=== PATIENT | female | born 1985 | race Caucasian/White ===

== ENCOUNTER 2023-08-16 03:30 | Emergency (ER) | payer OTHER ==
[~2023-08-16] VITALS: Ht 152.4 cm; Wt 109.9 kg
[2023-08-16 04:24] LABS: BASOPHILS # (AUTO) 0.1 X10'3 (0-0.2); BASOPHILS % (AUTO) 0.7 % (0-1); EOSINOPHILS # (AUTO) 0.1 X10'3 (0-0.9); EOSINOPHILS % (AUTO) 0.9 % (0-6); HEMATOCRIT 45.5 % (35.0-45.0); HEMOGLOBIN 15.8 g/dl (12.0-16.0); LYMPHOCYTES # (AUTO) 4.5 X10'3 (1.1-4.8); LYMPHOCYTES % (AUTO) 30.3 % (21-51); MEAN CORPUSCULAR HGB CONC 34.8 g/dL (33.0-36.5); MEAN CORPUSCULAR VOLUME 86.4 FL (78-98); MEAN PLATELET VOLUME 9.4 FL (7.4-10.4); MONOCYTES # (AUTO) 0.9 X10'3 (0-0.9); NEUTROPHILS # (AUTO) 9.1 X10'3 (1.8-7.7); NEUTROPHILS % (AUTO) 62.1 % (42-75); PLATELET COUNT 381 X10'3 (140-440); RED BLOOD COUNT 5.26 X10'6 (4.20-5.60); WHITE BLOOD COUNT 14.7 X10'3 (4.5-11.0)
--- NOTE | 2023-08-16 04:29 | NUR ---
Patient in BR. Hat placed in toilet for urine collection. Patient with flat affect. Continue to monitor.
[2023-08-16 04:33] LABS: ALANINE AMINOTRANSFERASE 21 U/L (12-78); ALBUMIN 4.1 G/DL (3.4-5.0); ALKALINE PHOSPHATASE 91 IU/L (46-116); ANION GAP 11 (8-16); ASPARTATE AMINO TRANSFERASE 15 U/L (10-37); BILIRUBIN,TOTAL 0.4 MG/DL (0.1-1.0); BLOOD UREA NITROGEN 7 MG/DL (7-18); BUN/CREATININE RATIO 6.2 (10.0-20.0); CHLORIDE 102 MMOL/L (99-107); CREATININE 1.13 MG/DL (0.40-0.90); GLUCOSE 147 MG/DL (70-104); POTASSIUM 3.5 MMOL/L (3.5-5.1); SODIUM 137 MMOL/L (135-145); TOTAL CARBON DIOXIDE 23.6 MMOL/L (24-32); TOTAL PROTEIN 8.4 G/DL (6.4-8.2); eCRCL 49 ML/MIN; eGFR 54 ML/MIN
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
[2023-08-16 04:43] LABS: ETHANOL < 10 MG/DL (<10); THYROID STIMULATING HORMONE 3.22 ulU/ml (0.34-4.50)
[2023-08-16 04:44] LABS: URINE HCG NEGATIVE (NEG)
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
[2023-08-16 04:57] LABS: URINE AMPHETAMINE SCREEN NEGATIVE (Neg); URINE BARBITUATE SCREEN NEGATIVE (Neg); URINE BENZODIAZEPINES SCREEN NEGATIVE (Neg); URINE CANNABINOID SCREEN NEGATIVE (Neg); URINE COCAINE SCREEN NEGATIVE (Neg); URINE METHADONE SCREEN NEGATIVE (Neg); URINE OPIATE SCREEN NEGATIVE (Neg); URINE PHENCYCLIDINE SCREEN NEGATIVE (Neg)
[2023-08-16 05:16] LABS: BILIRUBIN,URINE NEGATIVE (Neg); CLARITY,URINE SLIGHTLY CLOUDY (Clear); COLOR,URINE YELLOW (Yellow); GLUCOSE, URINE NEGATIVE (Neg); KETONES,URINE NEGATIVE (Neg); LEUKOCYTE ESTERASE ,URINE NEGATIVE (Neg); NITRITES, URINE NEGATIVE (Neg); OCCULT BLOOD,URINE NEGATIVE (Neg); PROTEIN,URINE 100 mg/dl (Neg); UROBILINOGEN,URINE 0.2 E.U/dL (0.2-1.0)
[2023-08-16 05:18] LABS: UA COLLECTION TYPE CLN CATCH MIDSTREAM
[2023-08-16 05:34] LABS: BACTERIA,URINE 3+ /HPF (Neg); MUCUS STRANDS MODERATE /LPF (Neg); RBC,URINE NONE SEEN /HPF (0-2); SQUAMOUS EPITHELIAL CELL,UR MANY /LPF (FEW); WBC,URINE 0-4 /HPF (0-4)
--- NOTE | 2023-08-16 05:53 | NUR ---
Patient sleeping supine. No distress observed. Continue to monitor.
[2023-08-16] MEDS ORDERED: NO HOME MEDS (06:07)
--- NOTE | 2023-08-16 06:51 | NUR ---
Patient appears to be asleep on her left side. A blanket is covering her head. No s/sx of distress.
--- NOTE | 2023-08-16 08:59 | NUR ---
Relieved primary nurse for a break. Pt sitting on the side of her bed eating breakfast.
--- NOTE | 2023-08-16 11:00 | NUR ---
Patient sleeping supine. No distress observed. Continue to monitor.
--- NOTE | 2023-08-16 13:45 | NUR ---
Patient sleeping on her left side. Resp even and unlabored. No s/sx of distress.
--- NOTE | 2023-08-16 14:15 | NUR ---
PT SLEEPING IN BETWEEN BRP AND TALKING TO MH EVALUATORS. CALM AND COOPERATIVE, SHORT SENTENCES. WAS TEARFUL AFTER DISCUSSION WITH MH, STATED SHE WAS OK, NO DISTRESS, APPEARED RELIEVED.
--- NOTE | 2023-08-16 15:08 | NUR ---
Patient sleeping on her right side. Resp. even and unlabored. No s/sx of distress. Talked to patient when awake and she can not give me any information how to locate her car.
--- NOTE | 2023-08-16 17:38 | NUR ---
Patient sitting on the side of her bed eat her dinner.
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
--- NOTE | 2023-08-17 07:22 | NUR ---
Patient moved back to overflow bed 20 from main ER. She ambulated without assistance, and went right back to sleep.
--- NOTE | 2023-08-17 08:33 | NUR ---
Patient sitting on her bed eating breakfast. No s/sx of distress.
--- NOTE | 2023-08-17 10:02 | NUR ---
Patient sleeping supine. No distress observed. Continue to monitor.
--- NOTE | 2023-08-17 12:28 | NUR ---
Patient has eaten her lunch tray, used the restroom and gone back to bed. No s/sx of distress.
--- NOTE | 2023-08-17 13:15 | NUR ---
Recieved report. Pt is currently in the BR.
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
--- NOTE | 2023-08-17 15:22 | NUR ---
Pt appears to be sleeping. RR even and unlabored.
--- NOTE | 2023-08-17 16:54 | NUR ---
Pt up to the BR then back to her bed. She states, "the bed is helping my back unlike when I sleep in my car." She appears calm.
--- NOTE | 2023-08-17 18:30 | NUR ---
Patient is awake in bed 20. Pt denies SI/HI/AVH. Calm and cooperative with interview. Pt is not eric why she is here. Monitor for safety.
--- NOTE | 2023-08-17 18:31 | NUR ---
Pt is awake laying on her side. No distress noted. She is calm and cooperative.
--- NOTE | 2023-08-17 20:29 | NUR ---
Patient lying on her right side, resting quietly. Pt in no distress at this time. Continue to monitor for safety.
--- NOTE | 2023-08-17 22:31 | NUR ---
Patient lying supine in bed with eyes open. Pt is calm and cooperative. RR even and unlabored, in no distress at this time. Monitor for safety.
--- NOTE | 2023-08-18 00:15 | NUR ---
Pt resting quietly in bed with eyes closed. RR even and pt in NAD. Monitor for safety.
--- NOTE | 2023-08-18 02:06 | NUR ---
Pt resting quietly in bed with eyes closed. RR even and pt in NAD. Monitor for safety.
--- NOTE | 2023-08-18 04:01 | NUR ---
Patient resting with eyes closed, RR even, NAD observed. Monitor for safety.
--- NOTE | 2023-08-18 05:35 | NUR ---
Patient asleep in NAD. RR even and unlabored. Monitor for safety.
--- NOTE | 2023-08-18 06:42 | NUR ---
Patient sleeping on her left side. Nonlabored respirations. No distress observed. Continue to monitor.
--- NOTE | 2023-08-18 08:26 | NUR ---
Patient eating breakfast. No distress observed. Continue to monitor.
--- NOTE | 2023-08-18 10:55 | NUR ---
Diann Chiang, friend who is sending money via [employer] [phone].
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
--- NOTE | 2023-08-18 12:20 | NUR ---
Patient eating lunch. No distress observed. Continue to monitor.
--- NOTE | 2023-08-18 14:44 | NUR ---
Patient accepted to [facility] by Mikie Lenz NP.
--- NOTE | 2023-08-18 15:33 | NUR ---
Ashlyn, quarry worker, speaking with patient. No distress observed. Continue to monitor.
[2023-08-18 16:59] VITALS: RESP 17; O2SAT 96
[2023-08-18 17:07] VITALS: BP 127/82; PULSE 88; RESP 16; TEMP 97.9; O2SAT 100
[2023-08-18 18:23] LABS: COVID19 ID NOW NEGATIVE (Neg)
--- NOTE | 2023-08-18 19:56 | NUR ---
Pt fell asleep after eating dinner sleeping at this time.
--- NOTE | 2023-08-18 22:48 | NUR ---
Pt sleeping. Resp even and unlabored. Repositions self. [facility] called, working on placement. Possible admit to [facility].
--- NOTE | 2023-08-19 00:49 | NUR ---
Pt up to BR independently. Sleeping at this time.
--- NOTE | 2023-08-19 04:27 | NUR ---
Pt continues to sleep. Resp even and unlabored.
--- NOTE | 2023-08-19 06:35 | NUR ---
Patient sleeping on left side. No distress observed. Respirations even and unlabored. Will continue to monitor.
--- NOTE | 2023-08-19 09:04 | NUR ---
Pt sitting in bed calm. No s/s of distress.
--- NOTE | 2023-08-19 11:02 | NUR ---
Pt sleeping in bed on left side. Respirations even and unlabored. No s/s of distress.
--- NOTE | 2023-08-19 11:19 | NUR ---
Mani bedside assessing pt.
--- NOTE | 2023-08-19 11:52 | NUR ---
Patient discharged with [facility] to [facility].
[2023-08-19 12:01] VITALS: BP 121/66; PULSE 86; RESP 16; TEMP 97.2; O2SAT 99
== END 2023-08-19 11:52 ==
LOC: ER 03:31 → UNDOADMIN 08-18 14:45 → ADULT MH 08-18 14:45 → ED HOLD 08-18 18:55 → ER 08-19 11:52
DX: F20.9 Schizophrenia, unspecified (principal); Z20.822 Contact with and (suspected) exposure to COVID-19; F29 Unspecified psychosis not due to a substance or known physiological condition; Z88.0 Allergy status to penicillin; Z79.899 Other long term (current) drug therapy
CPT/HCPCS: 36415; 80053; 80305; 80320; 81001; 81025; 84443; 85025; 87081; 87635; 87811; 99285; G0378